=== PATIENT | male | born 1975 | race Caucasian/White ===

== ENCOUNTER 2024-05-10 00:12 | Emergency (ER) | payer BC, SELFPAY ==
[2024-05-10 00:36] VITALS: BP 128/91; PULSE 75; RESP 16; TEMP 37; O2SAT 99; BMI 21.1
--- NOTE | 2024-05-10 00:44 | CRLHL7_ITS ---
For Patients: As a result of the Century Cures Act, medical imaging exams and procedure reports are released immediately into your electronic medical record. You may view this report before your referring provider. If you have questions, please contact your health care provider. INDICATION: Fall, trauma, right chest pain TECHNIQUE: CT chest with i.v. contrast during the venous phase. Coronal and sagittal reformats were obtained. CONTRAST: 50 mL Isovue 370 COMPARISON: None FINDINGS: Cardiovascular: The heart has an unremarkable appearance and size. The pulmonary arteries are unremarkable in appearance. No sign of aneurysm or dissection in the thoracic aorta. Mediastinum: No mass or adenopathy seen. Lung: Severe panlobular and centrilobular emphysema is present in both upper lobes. There is a subpleural bulla in the medial left upper lobe measuring 9 cm. Subpleural bulla are present in the posterior right upper lobe measuring up to 6.5 cm. A 9 mm nodule is noted in the right upper lobe on image 47, series 3. Pleura and pericardium: No sign of pleural effusion seen. No significant pericardial effusion is present. Chest wall and axilla: No mass or adenopathy seen. Bone: Mild dextroscoliosis of the thoracic spine is noted. Upper abdomen: Unremarkable. IMPRESSION: 1. A 9 mm nodule is noted in the right upper lobe on image 47, series 3. In accordance with the 2017 Revised Fleischner Society Recommendations, evaluation with follow-up CT in 3 months, biopsy or PET scan is recommended to exclude a primary pulmonary neoplasm. A copy of this report was faxed to Dr. Jacobs at approximately 2:50 AM. Dictated by Cal Alvarenga MD @ 05/10/2024 2:50:07 AM Prelim Report By Dr. Cal Alvarenga @ 05/10/2024 2:50:15 AM ADDENDUM The findings and recommendations were discussed with Dr. Jacobs by telephone at 2:57 AM. Please note that all CT scans at this facility use dose modulation, iterative reconstruction, and/or weight-based dosing when appropriate to reduce radiation dose to as low as reasonably achievable. Dictated by: MD @ 05/10/2024 02:57:56 (Electronically Signed)
--- OUTSIDE RECORDS SUMMARY | 2024-05-10 00:55 | XMS_ITS | Clinical Summary ---
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 180 Tablet 3 11/08/2023 Active Active Problems Problem Noted Date Diagnosed Date Colon polyp 04/11/2015 Overview: Colonoscopy 03/2015 large rectal polyp surgically resected, small polyp on follow up colonoscopy, repeat in 3 years Colonoscopy 08/2019 normal, repeat in 5 years Hemorrhoids 03/11/2015 Resolved Problems Problem Noted Date Diagnosed Date Resolved Date Pain in joint, ankle and foot 06/16/2009 02/28/2015 Immunizations Name Administration Dates Next Due Tdap 12/02/2023,02/20/2013 Social History Tobacco Use Types Packs/Day Years Used Date Smoking Tobacco: Every Day Cigarettes 1 12 Smokeless Tobacco: Never Tobacco Cessation:Ready to Q uit: No; Counseling Given: Yes Alcohol Use Standard Drinks/Week Comments Yes 42 (1 standard drink = 0.6 oz pu re alcohol) 3 beers per day PHQ-2 Answer Date Recorded PHQ-2 TOTAL SCORE 0 12/02/2023 Social Connections Answer Date Recorded Frequency of Communication with Friends and Fami ly Not on file 11/28/2021 Financial Resource Strain Answer Date R ecorded Difficulty of Paying Living Expenses Not on file 11/28/2021 Difficulty of Paying Living Expenses Not on file 11/28/2021 Sex and Gender Information Value Date Recorded Sex Assigned at Not on file Gender Identity Not on file Sexual Orientation Not on file Obstetrics History Last Filed Vital Signs Vital Sign Reading Time Taken Comments Blood Pressure 121/82 12/02/2023 7:35 AM FISHERIES BIOLOGIST Pulse 72 12/02/2023 7:32 AM FISHERIES BIOLOGIST Temperature 36.7 ??C (98 ??F) 10/08/2020 3:21 PM FISHERIES BIOLOGIST Respiratory Rate 16 09/08/2022 2:50 PM CDT Oxygen Saturation 99% 12/02/2023 7:32 AM FISHERIES BIOLOGIST Inhaled Oxygen Concentration - - Weight 71.8 kg (158 lb 3.2 oz) 12/02/2023 7:32 A M FISHERIES BIOLOGIST Height 182.9 cm (6') 08/31/2022 3:04 PM CDT Body Mass Index 21.46 08/31/2022 3:04 PM CDT Plan of Treatment Health Maintenance Due Date Last Done Comments Pneumococcal series for age 6-64 (1 of 2 - PCV) 1982 HIV for age 15-65 1991 Hepatitis C screening for ag e 18-79 1994 Lipids for age 45-75 2021 COVID-19 vaccine series (2022- season) 2023 BMI (ht and wt on same day) for age 18+ 08/31/2023 08/31/2022, 10/01/2020, 08/24/2019, Additional history exists Influenza for age 9-49 07/29/2024 Colonoscopy through age 75 09/07/202409/07, 09/07/2019, 09/07/2019, Additional history exists Depression screening for age 12+ 12/02/2024 12/02/2023, 10/02/2020, 10/01/2020, Additional history exists Tetanus booster 12/02/2033 12/02/2023, 02/20/2013 Tdap Completed 12/02/2023, 02/20/2013 Procedures Procedure Name Priority Date/Time Associated Diagnosis Comments COLONOSCOPY DIAGNOSTIC Routine 09/07/2019 8:03 AM CDT History of colon polyps from Last 3 Months or Most Recently Relevant to Health Maintenance Results * COLONOSCOPY DIAGNOSTIC (09/07/2019 8:03 AM CDT) Petey Dumont MD GI PROCEDURE O RD from Last 3 Months or Most Recently Relevant to Health Maintenance Care Teams Claims Account Specialist Relationship Specialty Start Date End Date Teresa Chung MD [address] [place] [address] PCP - General Family Practice 10/01/20
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
== END 2024-05-10 03:29 | disposition home or self-care (01) ==
PROVIDERS: Emergency Provider Emergency Medicine
DX: S30.1XXA Contusion of abdominal wall, initial encounter (principal); W22.8XXA Striking against or struck by other objects, initial encounter; R91.1 Solitary pulmonary nodule
CPT/HCPCS: 71260; 82565; 99284; Q9967

== ENCOUNTER 2024-07-16 08:09 | Emergency (ER) | payer BC, SELFPAY ==
[2024-07-16 08:16] VITALS: BP 114/63; PULSE 95; RESP 18; TEMP 37.2; O2SAT 98; BMI 21.1
--- OUTSIDE RECORDS SUMMARY | 2024-07-16 09:08 | XMS_ITS | Clinical Summary ---
Author Organization [facility] Address [place], [place] [address] Care Team Providers Care Gunstock Spray Unit Feeder Name Role Phone Teresa Chung MD Primary [...] in joint, ankle and foot 06/16/2009 02/28/2015 Encounters Date Type Department Care Team Description 07/16/2024 Telephone [facility] [address] [place] [address] Reymundo Lora MD Appointment Request from Last 3 Months Immunizations Name Administration Dates Next Due Tdap [...] Comments Blood Pressure 121/82 12/02/2023 7:35 AM CHARTER BOAT OPERATOR Pulse 72 12/02/2023 7:32 AM CHARTER BOAT OPERATOR Temperature 36.7 ??C (98 ??F) 10/08/2020 3:21 PM CHARTER BOAT OPERATOR Respiratory Rate 16 09/08/2022 2:50 PM CDT Oxygen Saturation 99% 12/02/2023 7:32 AM CHARTER BOAT OPERATOR Inhaled Oxygen Concentration - - Weight 71.8 kg (158 lb 3.2 oz) 12/02/2023 7:32 A M CHARTER BOAT OPERATOR Height 182.9 cm (6') 08/31/2022 3:04 PM [...] Recently Relevant to Health Maintenance Care Teams Gunstock Spray Unit Feeder Relationship Specialty Start Date End Date Teresa Chung MD [address] [place] [address] PCP - General Family Practice 10/01/20
[2024-07-16] MEDS: OXYCODONE 5 MG TABLET PO (09:09)
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
== END 2024-07-16 10:30 | disposition home or self-care (01) ==
PROVIDERS: Emergency Provider Student in an Organized Health Care Education/Training Program
DX: S82.241A Displaced spiral fracture of shaft of right tibia, initial encounter for closed fracture (principal); S82.831A Other fracture of upper and lower end of right fibula, initial encounter for closed fracture
CPT/HCPCS: 99282; 99284; A9270

== ENCOUNTER 2024-07-18 08:53 | Day surgery (SDC) | payer BC, SELFPAY ==
[2024-07-18] VITALS (20 sets, daily range): BP systolic 96–155; BP diastolic 59–108; PULSE 82–108; RESP 12–20; TEMP 36.2–38.2; O2SAT 86–100; BMI 19.3
--- OUTSIDE RECORDS SUMMARY | 2024-07-18 08:55 | XMS_ITS | Clinical Summary ---
Author Organization [facility] Address [place], [place] [address] Care Team Providers Care Card Checker Name Role Phone Teresa Chung MD Primary [...] Type Department Care Team Description 07/16/2024 Telephone [facility] [address] [place] [address] Reymundo Lora MD Appointment Request from Last [...] Comments Blood Pressure 121/82 12/02/2023 7:35 AM SCALE BALANCER Pulse 72 12/02/2023 7:32 AM SCALE BALANCER Temperature 36.7 ??C (98 ??F) 10/08/2020 3:21 PM SCALE BALANCER Respiratory Rate 16 09/08/2022 2:50 PM CDT Oxygen Saturation 99% 12/02/2023 7:32 AM SCALE BALANCER Inhaled Oxygen Concentration - - Weight 71.8 kg (158 lb 3.2 oz) 12/02/2023 7:32 A M SCALE BALANCER Height 182.9 cm (6') 08/31/2022 3:04 PM [...] Recently Relevant to Health Maintenance Care Teams Card Checker Relationship Specialty Start Date End Date Teresa Chung MD [address] [place] [address] PCP - General Family Practice 10/01/20
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
--- NOTE | 2024-07-18 09:48 | W.PM.H&PU ---
History & Physical Update History & Physical Update H&P Reviewed and patient assessed: No changes noted
[2024-07-18] MEDS: LACTATED RINGERS 1000 ML 1,000 ML 100 ML IV ×3 (10:12→20:21)
[2024-07-18] MEDS: SODIUM CHLORIDE 0.9 % (FLUSH) 10 ML SYRINGE IVF ×2 (10:12→21:17)
--- NOTE | 2024-07-18 11:30 | CRLHL7_ITS ---
For Patients: As a result of the Cures Act, medical imaging exams and procedure reports are released immediately into your electronic medical record. You may view this report before your referring provider. If you have questions, please contact your health care provider. Indication: Intraop tib-fib Technique: Two fluoroscopic images of the right tibia and fibula IMPRESSION: Fluoroscopic guidance for open reduction internal fixation of the distal tibial fracture. Dictated by Tonny Ansari MD @ 07/19/2024 10:07:04 AM (Electronically Signed)
[2024-07-18] MEDS: fentaNYL 100 MCG/2 ML inj IVP (11:45)
--- NOTE | 2024-07-18 11:52 | SUR.PREOP ---
Patient stating he is in a lot of pain due to previous dose of pain medication early this morning. He is also due for his Keppra at 11:30 am. Patient okay to take scheduled home dose of Keppra with sip of water per Dr. Miles and may have 50 mcg Fentanyl IV per Dr. Miles. Patient has call light within reach. Spouse at the bedside.
--- NOTE | 2024-07-18 11:55 | SUR.PREOP ---
Patient on pulse ox for monitoring due to administration of Fentanyl.
--- NOTE | 2024-07-18 12:29 | SUR.PREOP ---
Kassandar, Director and Patient Advocate Yamel doe to see patient.
--- NOTE | 2024-07-18 13:05 | SUR.PREOP ---
Patient's spouse departed. Patient's call light within reach. O2 sats 94-98%.
--- NOTE | 2024-07-18 13:55 | SUR.PREOP ---
Med Surg aware of delay in procedure start.
[2024-07-18] MEDS: CEFAZOLIN 2 GM INJ IVP (16:10)
--- NOTE | 2024-07-18 19:21 | W.ANESCHARGE ---
Anesthesia Charges Start Date/Time Anesthesia Start Date: 07/18/24 Anesthesia Start Time: 15:46 Stop Date/Time Anesthesia Stop Date: 07/18/24 Anesthesia Stop Time: 19:09
--- NOTE | 2024-07-18 20:10 | SUR.PHASEI ---
patient met discharge criteria per anesthesia
[2024-07-18] MEDS: ASPIRIN 81 MG TABLET EC PO (21:14)
[2024-07-18] MEDS: HYDROmorphone 0.5 mg/0.5 ml inj IVP (21:16)
[2024-07-18] MEDS: SENNOSIDES 1 TAB TABLET 2 TAB PO (21:16)
[2024-07-18] MEDS: CEFAZOLIN 1 GM in 0.9 % SODIUM CHLORIDE Mini-bag 100 ML IVPB (22:18)
[2024-07-18] MEDS: OXYCODONE 5 MG TABLET PO ×2 (22:19→23:07)
[2024-07-18] MEDS: levETIRAcetam 500 MG TABLET 1000 MG PO (23:07)
[2024-07-18] MEDS: ACETAMINOPHEN 325 MG TABLET 650 MG PO (23:08)
[2024-07-19 00:05] VITALS: BP 106/62; PULSE 93; RESP 16; TEMP 36.8; O2SAT 98
[2024-07-19 00:24] VITALS: TEMP 36.8
[2024-07-19] MEDS: OXYCODONE 5 MG TABLET PO ×5 (00:58→10:13)
[2024-07-19 00:59] VITALS: BP 97/55; PULSE 95; RESP 16; TEMP 37.1; O2SAT 96
[2024-07-19 01:56] VITALS: BP 100/63; PULSE 67; RESP 16; TEMP 37.1; O2SAT 94
--- NOTE | 2024-07-19 05:32 | PC.NURSE ---
Pt rested well this night. Pt very stable on feet with crutches. Pain under control. No N/V.
[2024-07-19] MEDS: CEFAZOLIN 1 GM in 0.9 % SODIUM CHLORIDE Mini-bag 100 ML IVPB (06:12)
[2024-07-19 07:40] VITALS: BP 94/60; PULSE 82; RESP 16; TEMP 36.9; O2SAT 98
[2024-07-19] MEDS: SENNOSIDES 1 TAB TABLET 2 TAB PO (08:20)
[2024-07-19] MEDS: ASPIRIN 81 MG TABLET EC PO (08:20)
[2024-07-19] MEDS: levETIRAcetam 500 MG TABLET 1000 MG PO (08:21)
--- NOTE | 2024-07-19 10:06 | P.ORPN_ITS ---
Subjective Subjective Date Seen: 07/19/24 Principal diagnosis: POD 1 right tibial IM nail Interval history: Patient reports doing well. No acute events over night. Pain is moderate. Pain managed with scheduled and PRN medications, ice. DVT prophylaxis: 81 mg a spirin by mouth twice daily; ankle pumps left ankle. Denies fevers, chills, aches, N/V, CP, SOB/ALEX, or lightheadedness. Desires a cigarette. Ortho Exam Narrative Exam Narrative: Right lower extremity: Nonweightbearing right lower extremity Right lower extremity covered in plaster posterior splint, well padded Able to move his toes which are pink and warm, brisk cap refill; intact dermatomes and myotomes distally Const Vital Signs, click to edit/add: Vital Signs - 24 hr 07/18/24 10:14 07/18/24 19:05 07/18/24 19:10 Temperature 98.9 F 97.2 F L 97.2 F L Pulse Rate 87 93 98 Pulse Rate [Right Dorsalis Pedis] Respiratory Rate 16 20 14 Blood Pressure 114/74 138/89 128/108 H Blood Pressure [Right Arm] Pulse Oximetry 98 100 100 Oxygen Delivery Method Room Air OxyMask OxyMask Oxygen Flow Rate 6 6 07/18/24 19:15 07/18/24 19:20 07/18/24 19:25 Temperature 97.2 F L 97.2 F L 97.2 F L Pulse Rate 92 82 107 H Pulse Rate [Right Dorsalis Pedis] Respiratory Rate 12 15 12 Blood Pressure 151/94 H 138/92 H 123/95 H Blood Pressure [Right Arm] Pulse Oximetry 99 100 100 Oxygen Delivery Method OxyMask OxyMask OxyMask Oxygen Flow Rate 6 6 6 07/18/24 19:30 07/18/24 19:35 07/18/24 19:40 Temperature 98.5 F 98.5 F 98.5 F Pulse Rate 90 103 H 108 H Pulse Rate [Right Dorsalis Pedis] Respiratory Rate 16 16 16 Blood Pressure 155/81 H 150/89 H 116/90 H Blood Pressure [Right Arm] Pulse Oximetry 98 94 92 Oxygen Delivery Method Room Air Room Air Room Air Oxygen Flow Rate 07/18/24 19:45 07/18/24 19:50 07/18/24 20:00 Temperature 98.5 F 98.5 F 98.7 F Pulse Rate 82 100 91 Pulse Rate [Right Dorsalis Pedis] Respiratory Rate 12 13 14 Blood Pressure 128/77 129/77 129/86 Blood Pressure [Right Arm] Pulse Oximetry 96 95 86 L Oxygen Delivery Method Room Air Room Air Room Air Oxygen Flow Rate 07/18/24 20:15 07/18/24 20:30 07/18/24 20:45 Temperature 100.5 F H 100.7 F H 99.7 F H Pulse Rate 86 100 98 Pulse Rate [Right Dorsalis Pedis] Respiratory Rate 16 16 16 Blood Pressure 137/81 133/81 123/77 Blood Pressure [Right Arm] Pulse Oximetry 94 92 96 Oxygen Delivery Method Nasal Cannula Nasal Cannula Room Air Oxygen Flow Rate 1 1 07/18/24 21:00 07/18/24 21:30 07/18/24 22:00 Temperature 99.7 F H 98.0 F 99.0 F Pulse Rate 100 99 99 Pulse Rate [Right Dorsalis Pedis] Respiratory Rate 16 14 16 Blood Pressure 107/79 104/64 96/81 Blood Pressure [Right Arm] Pulse Oximetry 96 92 95 Oxygen Delivery Method Room Air Room Air Room Air Oxygen Flow Rate 0 0 0 07/18/24 22:10 07/18/24 23:00 07/19/24 00:05 Temperature 99.6 F 98.3 F Pulse Rate 100 93 Pulse Rate [Right Dorsalis Pedis] Respiratory Rate 14 16 16 Blood Pressure 99/59 L 106/62 Blood Pressure [Right Arm] Pulse Oximetry 92 93 98 Oxygen Delivery Method Room Air Room Air Room Air Oxygen Flow Rate 0 0 0 07/19/24 00:24 07/19/24 00:59 07/19/24 01:56 Temperature 98.3 F 98.8 F 98.8 F Pulse Rate 95 67 Pulse Rate [Right Dorsalis Pedis] Respiratory Rate 16 16 Blood Pressure 97/55 L 100/63 Blood Pressure [Right Arm] Pulse Oximetry 96 94 Oxygen Delivery Method Room Air Room Air Oxygen Flow Rate 0 0 07/19/24 07:40 07/19/24 07:40 Temperature 98.4 F Pulse Rate Pulse Rate [Right Dorsalis Pedis] 82 Respiratory Rate 16 16 Blood Pressure Blood Pressure [Right Arm] 94/60 Pulse Oximetry 98 98 Oxygen Delivery Method Room Air Room Air Oxygen Flow Rate 0 Assessment and Plan Assessment and plan (1) Closed fracture of right tibia and fibula: Problem details: Displaced, spiral, distal tibial metaphyseal fracture. Displaced, oblique proximal fibular shaft fracture; status post tibial IM nail (07/18/2024 Dr. Patel) Status: Acute Plan - Complete 23 hour perioperative antibiotics. - PT/OT consult for education and assistance - nonweightbearing right lower extremity, toe-touch weightbear okay - Social work consult for discharge planning - Prescribed analgesics as needed - DVT prophylaxis: 81 mg aspirin by mouth twice daily - Anticipation is for discharge to home with family 07/19/2024 if the patient remains medically stable, pain is controlled, and they are safe with mobilization (nonweightbearing right lower extremity) - We thoroughly discussed smoking cessation
[2024-07-19 10:26] VITALS: BP 108/72; PULSE 96; RESP 16; TEMP 37.3; O2SAT 97
--- NOTE | 2024-07-19 11:07 | PC.NURSE ---
Pt alert and oriented. Pt pleasant and cooperative. VS WNL. Pt had complaints of pain ranging from3-7; see EMAR for intervention. Pt?s right leg is wrapped to mid-thigh with ying wrap and cast on LE. Pt is up independently with crutches. Pt?s IV removed; catheter intact. Pt discharged home with .?
== END 2024-07-19 11:07 | disposition home or self-care (01) ==
LOC: OR 08:53 → MEDSURG 08:55
PROVIDERS: Visit Provider Orthopaedic Surgery
PROC: (CPT 27759; principal; 2024-07-18 11:30)
DX: S82.291A Other fracture of shaft of right tibia, initial encounter for closed fracture (principal)
CPT/HCPCS: 27759; 01390; 73590; 76000; 97116; 97161; 97530; A9270; C1713; J0330; J0690; J1100; J1170; J1630; J1885; J2405; J2704; J3010; J3490; J7120

== ENCOUNTER 2024-11-06 14:45 | Outpatient (RCR) | payer BC, SELFPAY | END 2025-03-06 23:59 | disposition home or self-care (01) | PROVIDERS: Visit Provider Orthopaedic Surgery | DX: S82.201A Unspecified fracture of shaft of right tibia, initial encounter for closed fracture (principal); S82.401A Unspecified fracture of shaft of right fibula, initial encounter for closed fracture; Z98.890 Other specified postprocedural states; M25.571 Pain in right ankle and joints of right foot; Z74.09 Other reduced mobility; R60.9 Edema, unspecified; R26.9 Unspecified abnormalities of gait and mobility; M62.81 Muscle weakness (generalized); Z51.89 Encounter for other specified aftercare | CPT/HCPCS: 97110; 97116; 97140; 97161 ==

== ENCOUNTER 2024-11-27 11:52 | Outpatient (CLI) | payer BC, SELFPAY | END 2024-11-27 11:53 | disposition home or self-care (01) | PROVIDERS: PCP Family Medicine; Visit Provider Family Medicine | DX: R91.1 Solitary pulmonary nodule (principal) | CPT/HCPCS: 80048; 80076; 85025 ==

== ENCOUNTER 2024-12-13 14:57 | Outpatient (CLI) | payer BC, SELFPAY ==
--- NOTE | 2024-12-13 15:00 | PE_ITS ---
EXAM:?PET EYES TO THIGHS, CANCER INITIAL STAGING CLINICAL INFORMATION: Lung nodule TECHNICAL INFORMATION: Helical acquisition of data was obtained from the orbits to the upper thighs with reconstruction of 3.75 mm thick images at 3.[address] data was used for attenuation correction. PET scanning was performed through the same anatomic range 60 minutes following administration of 10.47 mCi of 18-FDG delivered intravenously. The patient's glucose at the time of the injection was 93 mg/dL. PET, CT and PET/CT fusion images are interpreted using a computer viewing workstation. PET, CT and PET/CT fusion images were archived and saved in the patient's permanent medical record. COMPARISON: CT chest 05/10/2024 INTERPRETATION: Mediastinal blood pool activity: 2.16 Background liver parenchymal uptake: 2.58 Head and Neck: There are no abnormal hypermetabolic foci within the head or neck. There is physiologic uptake in the intracranial soft tissues. Chest: Redemonstrated 9 mm nodule in the right upper lobe (series 202 image 105), similar in size to the comparison exam, with an SUV max of 4.64. No other lung nodules are visualized. A foci of FDG avidity in the superior mediastinal region with an SUV max of 5.56. Questionable small 5 mm lymph node in the region in (series 202 image 93). No other abnormal enlarged or hypermetabolic lymph nodes. A few nonspecific foci of uptake throughout the esophagus (SUV max of 3.04). No CT correlate lesion. Extensive emphysematous changes of the lungs. Pleural parenchymal scarring in the left upper lobe. A subpleural 3 mm nodule in the right middle lobe (series 202 image 152) which is stable from the prior exam. No pleural effusion or pneumothorax. Abdomen and Pelvis: There are no abnormal hypermetabolic foci within the abdomen or pelvis. There is physiologic excretion of radiotracer in the urine and bowel. Aortoiliac atherosclerosis. Small amount of free fluid in the pelvis is nonspecific. Skeleton, Musculature, and Integument: No abnormal hypermetabolic foci within the skeleton. No gaudencio osteoblastic or osteolytic disease. CONCLUSION: * An FDG avid 9 mm nodule in the right upper lobe. Given the persistence from the comparison exam and metabolic activity, findings remains suspicious for neoplasm. Consider tissue sampling. * A focus of uptake in the superior mediastinum. No definite CT correlate lesion is visualized but findings are suspicious for an early metastatic lymph node. * No evidence of metastatic disease in the abdomen or pelvis. * A few small foci of low level FDG uptake in the esophagus. No discrete CT correlate lesion and findings may be related to esophagitis. * A small amount of trace free fluid in the pelvis is nonspecific but an abnormal finding in a male patient. * Stable 3 mm nodule in the right middle lobe. Attention on follow-up imaging. Electronically signed on 12/17/2024 1:58:00 PM by Oscar Snyder D.O
== END 2024-12-13 14:58 | disposition home or self-care (01) ==
LOC: RAD 14:59
PROVIDERS: PCP Family Medicine; Visit Provider Family Medicine
DX: R91.1 Solitary pulmonary nodule (principal); R04.2 Hemoptysis
CPT/HCPCS: 78815; A9552

== ENCOUNTER 2025-03-18 13:43 | Outpatient (CLI) | payer BC, SELFPAY ==
--- NOTE | 2025-03-18 14:00 | CRLHL7_ITS ---
For Patients: As a result of the Cures Act, medical imaging exams and procedure reports are released immediately into your electronic medical record. You may view this report before your referring provider. If you have questions, please contact your health care provider. INDICATION: Pain. Prior tibial fracture status post internal fixation. Evaluate healing. TECHNIQUE: Noncontrast CT of the right tibia and fibula. COMPARISON: Radiographs from 03/12/2025. FINDINGS: Status post intramedullary nail fixation of a fracture of the distal tibial shaft and upper metaphysis. Proximal and distal locking screws. Placed hardware appears intact and appropriately seated. No hardware loosening. There is partial healing of the obliquely oriented fracture with areas of osseous bridging. There is also healing of the fibular shaft fracture. No new fracture. No soft tissue fluid collection or hematoma. There is subcutaneous edema. IMPRESSION: 1. Status post intramedullary nail fixation of a fracture of the distal right tibial shaft and metaphysis. Proximal distal locking screws are present. 2. Placed hardware appears intact and appropriately seated. No hardware loosening. 3. Distal tibial fracture demonstrates partial healing. 4. Proximal fibular fracture demonstrates a greater degree of healing. Please note that all CT scans at this facility use dose modulation, iterative reconstruction, and/or weight-based dosing when appropriate to reduce radiation dose to as low as reasonably achievable. Dictated by Brandon Tracey MD @ 03/19/2025 8:49:39 AM (Electronically Signed)
== END 2025-03-18 13:44 | disposition home or self-care (01) ==
PROVIDERS: PCP Family Medicine; Visit Provider Orthopaedic Surgery
DX: M79.661 Pain in right lower leg (principal); S82.201G Unspecified fracture of shaft of right tibia, subsequent encounter for closed fracture with delayed healing; S82.401G Unspecified fracture of shaft of right fibula, subsequent encounter for closed fracture with delayed healing; Z98.890 Other specified postprocedural states; Z72.0 Tobacco use
CPT/HCPCS: 73700